=== PATIENT | male | born 1960 | race Caucasian/White ===

== ENCOUNTER 2021-06-27 21:43 | Emergency (ER) | payer MEDICARE | END 2021-06-27 23:29 | disposition home or self-care (01) | LOC: FER 21:43 | DX: M54.9 Dorsalgia, unspecified (principal); M54.2 Cervicalgia; S00.03XA Contusion of scalp, initial encounter; Z88.0 Allergy status to penicillin; Z88.2 Allergy status to sulfonamides; Z87.891 Personal history of nicotine dependence; W19.XXXA Unspecified fall, initial encounter; Y92.009 Unspecified place in unspecified non-institutional (private) residence as the place of occurrence of the external cause | CPT/HCPCS: 70450; 71045; 72125; 72128; 72131; 73000 ==

== ENCOUNTER 2021-10-08 14:52 | Emergency (ER) | payer MEDICARE ==
[2021-10-08 15:34] LABS: BASOPHIL 0.5 % (0-2); EOSINOPHIL 1.8 % (0-5); HCT 39.9 % (42.0-52.0); HGB 13.4 g/dl (13.2-18.0); LYMPHOCYTE 15.6 % (15-48); MCH 33.4 pg (25.0-31.0); MCHC 33.6 g/dL (32.0-36.0); MCV 99.5 fL (78.0-100.0); MONOCYTE 10.3 % (0-12); MPV 10.2 fL (6.0-9.5); NEUTROPHIL 71.4 % (41-80); NRBC 0; PLT 205 K/uL (150-400); RBC 4.01 M/uL (4.70-6.00); RDW 12.3 % (11.5-14.0); WBC 5.7 K/uL (4.0-10.5)
[2021-10-08 16:08] LABS: INR 1.07 (0.9-1.2); PROTHROMBIN TIME 13.6 SECONDS (11.9-13.9); PTT 25.9 SECONDS (24.9-34.6)
[2021-10-08 16:24] LABS: LACTIC ACID 1.8 mmol/L (0.4-1.9)
[2021-10-08 16:25] LABS: ALBUMIN 3.5 g/dL (3.4-5.0); BILIRUBIN - TOTAL 0.5 mg/dL (0.2-1.0); BUN/CREAT RATIO (CALC) 13.7 RATIO; CREATININE 1.82 mg/dL (0.67-1.17); GLOBULIN (CALCULATION) 2.7 g/dL; POTASSIUM 3.8 mmol/L (3.5-5.1); TOTAL PROTEIN 6.2 g/dL (6.4-8.2)
[2021-10-08 17:17] LABS: BILIRUBIN 1+ mg/dL (NEGATIVE); BLOOD 3+ Ery/uL (NEGATIVE); CLARITY CLEAR (CLEAR); COLOR YELLOW (YELLOW); GLUCOSE (U) NORMAL (NORMAL); LEUKOCYTES TRACE Leu/uL (NEGATIVE); NITRITE NEGATIVE (NEGATIVE); PROTEIN 1+ mg/dL (NEGATIVE)
[2021-10-08 17:42] LABS: URINARY RBC TNTC; URINARY WBC RARE
[2021-10-08 17:45] LABS: BACTERIA TRACE; MUCOUS TRACE; SQUAMOUS EPITHELIAL CELLS RARE
[2021-10-08] MEDS ORDERED: FLOMAX0.4 MG PO (17:53)
[2021-10-08] MEDS ORDERED: NORCO 5-325 TA1 EACH PO (17:53)
[2021-10-08] MEDS ORDERED: ONDANSETRON ODT4 MG PO (17:53)
== END 2021-10-08 19:22 | disposition home or self-care (01) ==
LOC: FER 14:52
PROVIDERS: Emergency Medicine
DX: N13.2 Hydronephrosis with renal and ureteral calculous obstruction (principal); N17.9 Acute kidney failure, unspecified; Z88.0 Allergy status to penicillin; Z88.2 Allergy status to sulfonamides
CPT/HCPCS: 36415; 80053; 81001; 83605; 83690; 84145; 84484; 85025; 85610; 85730; 93005; J1170; J2270; J2405; J7030